=== PATIENT | male | born 1940 | race Caucasian/White ===

== ENCOUNTER 2018-12-07 16:55 | Emergency (ER) | payer MEDICARE ==
[~2018-12-07] VITALS: Ht 182.9 cm; Wt 90.7 kg
[~2018-12-07 16:55] MED LIST: ASPI81EC PO; CHLO4 PO; ROSU10TA PO; [UNRECOGNIZED DRUG - OTHER]
[2018-12-07] MEDS ORDERED: PROAIR RESPICL90 MCG PO (17:19)
[2018-12-07] MEDS ORDERED: Aspirin EC81 MG PO (17:20)
[2018-12-07] MEDS ORDERED: CHOL10002 PO (17:20)
[2018-12-07] MEDS ORDERED: Tamiflu75 MG PO (18:35)
== END 2018-12-07 18:52 | disposition home or self-care (01) ==
LOC: ER 16:55
DX: J10.1 Influenza due to other identified influenza virus with other respiratory manifestations (principal); I21.4 Non-ST elevation (NSTEMI) myocardial infarction; Z79.899 Other long term (current) drug therapy; E78.5 Hyperlipidemia, unspecified; Z85.46 Personal history of malignant neoplasm of prostate; F17.210 Nicotine dependence, cigarettes, uncomplicated
CPT/HCPCS: 99284

== ENCOUNTER 2019-07-08 07:57 | Day surgery (SDC) | payer OTHER, MEDICARE ==
[~2019-07-08] VITALS: Ht 182.9 cm; Wt 89.0 kg
[~2019-07-08 07:57] MED LIST changes: +Aspirin EC81 MG PO; +CHOL10002 PO; +Calcium Carbon500 MG PO; +Crestor40 MG PO; +MELA3 PO; +Naproxen250 MG PO; +PROAIR RESPICL90 MCG PO; +Tamiflu75 MG PO; +VOLTAREN100 GM TOP; +Zoladex3.6 MG SC
--- NOTE | 2019-07-08 14:12 | NUR ---
DISCHARGE PT REMIANED A&OX3 AND DENIED ANY PAIN AT THIS TIME. R RADIAL SITE-TR BAND REMOVED WITH CLOTH DOT AND WHITE BOARD IN [id number] HEMATOMA NOTED. PT ABULATED TO RESTROOM WITH SBA AND WAS ABLE TO DRESS SELF WITH LITTLE ASSITANCE. IV DC'D WITH TIP IN TACT. DISCHARGE PAPERWORK GONE OVER WITH PT. PT VERBALLY STATED THE UNDERSTANDING OF THE DISCHARGE EDUCATION AND DENIED ANY QUESTIONS AT THIS TIME. PT REFUSED WHEEL CHAIR AND WALK OUT.
--- NOTE | 2019-07-08 14:53 | NUR ---
NEW MEDICATION NEW PRESCRIPTION AND PROCEDURE REPORT FAXED TO [facility] TO BE FILL[facility].
== END 2019-07-08 14:30 | disposition home or self-care (01) ==
LOC: MHTC 07:57
DX: I70.203 Unspecified atherosclerosis of native arteries of extremities, bilateral legs (principal); I70.0 Atherosclerosis of aorta; I70.8 Atherosclerosis of other arteries; I10 Essential (primary) hypertension; E78.5 Hyperlipidemia, unspecified; J44.9 Chronic obstructive pulmonary disease, unspecified; M19.90 Unspecified osteoarthritis, unspecified site; F17.210 Nicotine dependence, cigarettes, uncomplicated; Z79.82 Long term (current) use of aspirin; Z79.899 Other long term (current) drug therapy; Z85.46 Personal history of malignant neoplasm of prostate
CPT/HCPCS: 36245; 75630; 75774; 76937; 99152; 99153; C1769; C1887; C1894; J1644; J2250; J3010; J7030; Q9967

== ENCOUNTER 2019-08-01 09:20 | Day surgery (SDC) | payer OTHER, MEDICARE ==
[~2019-08-01] VITALS: Ht 182.9 cm; Wt 90.1 kg
[~2019-08-01 09:20] MED LIST changes: +CLOP75 PO
--- NOTE | 2019-08-01 15:56 | NUR ---
PT REFUSING TO FOLLOW REQUESTS ABOUT LAYING ON HIS BACK UNTIL THE SHEATH IS PULLED FROM HIS ACCESS SITE. PT EDUCATED ON THE COMPLICATIONS OF BLEEDING FROM SITE IF HE BENDS HIS LEG OR LAYS ON THE SIDE IN WHICH THE SHEATH IS STILL IN. PT STATES HIS UNDERSTANDING AND STATES "I DONT CARE, I NEED OFF MY BACK". WILL CONTINUE TO MONITOR SITE FOR BLEEDING.
--- NOTE | 2019-08-01 16:52 | NUR ---
PT REMAINS INSISTING NOT TO FOLLOW REQUESTS OF HIM LAYING ON HIS BACK UNTIL THE SHEATH IS REMOVED FROM HIS ARTERY. PT STATES "I DANIEL REESE LAY LIKE THIS". WILL CONTINUE TO MONITOR SITE AND VITAL SIGNS.
--- NOTE | 2019-08-01 17:10 | NUR ---
IN TO [facility]. REINFORCED PT OF THE IMPORTANCE OF HIM LAYING ON HIS BACK AND NOT HIS SIDE DUE TO THE SHEATH STILL BEING IN PLACE AND IF HE LAYS ON HIS SIDE HE PUTS HIMSELF AT RISK FOR BLEEDING TO . PT STATES HIS UNDERSTANDING. RECEIVED VERBAL ORDER FOR PERCOCET 5/325MG PO FOR PAIN PRN Q4H. SITE VIEWED. NO BLEEDING OR HEMATOMA NOTED. PT DENIES BACK PAIN. ORDER FAXED TO PHARMACY.
--- NOTE | 2019-08-01 17:22 | NUR ---
PT MEDICATED PERCOCET PO FOR 7/10 LEFT HIP/LEG PAIN. ACT CHECKED 153, LEFT ANTEGRADE 6 FR SHEATH PULL STARTED. PT C/O INCREASED PAIN, MEDICATED WITH FENTANLYL 50 MCG IVP DURING SHEATH PULL. PT APPEARS TO BE MORE COMFORTABLE AT THIS TIME. MANUAL PRESSURE HOLD GOING AT THIS TIME BY DEDE GOODSON RN. WILL CONTINUE TO MONITOR.
--- NOTE | 2019-08-01 18:17 | NUR ---
PATIENT ARRIVED ICU 11 AT APPROX 1805 AFTER REPORT FROM DEANGELO BARRERA FROM [facility]. LEFT GROIN SITE STABLE WITH LINDA DRESSING IN PLACE. RIGHT RADIAL SITE WITH ARM BAND ON. LEFT PEDAL PULSE BY DOPPLER. FOOT IS WARM.
--- NOTE | 2019-08-01 19:20 | NUR ---
GROIN SITE CONTINUES STABLE. REPORT TO DEANGELO LUKE
--- NOTE | 2019-08-01 21:44 | NUR ---
ASSUMED CARE AT 2114 - NOC SHIFT PATIENT LAYING SUPINE IN BED, LEFT GROIN SITE ASSESSED WITH NO BLEEDING OR HEMATOMA NOTED. PATIENT ALSO HAS RIGHT RADIAL SITE THAT HAS A DRESSING OVER IT WITH ARM BOARD IN PLACE. PATIENT EDUCATED REGARDING USING RIGHT ARM AND ALSO EDUCATED ON REMAINING FLAT IN BED DUE TO LEFT GROIN SITE. PATIENT CONTINUE TO MOVE IN BED AND USING AGRESSIVE TONES WITH CURSE WORDS REGARDING LAYING IN BED FLAT - STATING 'I CANNOT USE THE FUCKING BED SMALLWOOD' - CONTINUED TO EDUCATE PATIENT REGARDING GROIN AND RADIAL SITES. PATIENT REMAINS IN NSR IN THE 60'S. ON ROOM AIR. REPORTS PAIN RELIEVED IN LEFT GROIN WITH MEDICATIONS PER EMAR. WOUND NOTED TO LEFT BACK OF CALF - TREATMENT PER WOUND CENTER (FROM CAT BITE). CALL LIGHT W/I REACH. WILL CONTINUE TO MONITOR.
--- NOTE | 2019-08-02 04:47 | NUR ---
PCU NOC SHIFT SUMMARY (ICU 2) PATIENT REMAINED ALERT AND ORIENTED X4 T/O SHIFT - PATIENT EASILY AGITATED AT BASELINE THROUGHOUT THIS STAY. PATIENT IS ANXIOUS TO GO HOME AND GO OUTSIDE TO SMOKE. NICOTINE PATCH ON RIGHT SHOULDER NOTED. PATIENT HAS ANGIO GRAM 08/01 WITH PCI OF RIGHT RADIAL AND LEFT GROIN AREA - BOTH SIDES ARE FREE OF ANY BLEEDING OR HEMATOMA. PATIENT DENIES ANY CHEST PAIN T/O SHIFT BUT DOES REPORT ONGOING LEFT LEG AND HIP PAIN. PATIENT REMAINS ON ROOM AIR AND SINUS TO SINUS CAROL WITH NO CARDIAC EVENTS NOTED T/O SHIFT. PCI SITES REMAIN STABLE T/O SHIFT. WILL CONTINUE TO MONITOR AND GIVE REPORT TO DAYSHIFT RN.
--- NOTE | 2019-08-02 07:10 | NUR ---
START OF SHIFT NOTE: RECEIVED REPORT FROM DEANGELO GRAHAM, ASSUMED CARE, PATIENT IS SLEEPING BUT EASILY AROUSEABLE, A+Ox4, RA, SR/SB, HR 50-70'S, SBP'S 110'S, PATIENT'S RIGHT RADIAL ACCESS SITE C/D/I, NO BLEEDING/TENDERNESS/HEMATOMA NOTED, ALSO LEFT GROIN SITE HAS NEPTUN OVER ACCESS SITE, SMALL AMOUNT OF OLD DRAINAGE NOTED, NO TENDERNESS, HEMATOMA, BLEEDING, PATIENT GETS UP TO ROOM TOILET WITH ONE ASSIST, PATIENT INCONTINENT OF URINE AT TIMES WEARS PULL UPS, EASILY AGITATED, BUT COOPERATIVE, PATIENT HAS WOUND ON LEFT CALF FROM A CAT BITE AND IS TREATED AT THE WOUND CLINIC, POSSIBLY HOME TODAY, DR. WHITAKER WILL BE HERE THIS AM TO SEE PATIENT BEFORE DISCHARGE, CALL LIGHT IN REACH, WILL CONTINUE TO MONITOR.
--- NOTE | 2019-08-02 08:45 | NUR ---
DR. WHITAKER IN TO SEE PATIENT, DISCHARGED HOME, DISCHARGE PAPERWORK WRITTEN AND VERBAL GIVEN AND EXPLAINED, PATIENT VERBALIZED UNDERSTANDING AND SIGNED DISCHARGE PAPERWORK, AWAITING ARRIVAL OF FRIEND TO GIVE PATIENT A RIDE HOME.
[2019-08-02] MEDS ORDERED: ALBU90OI INH (09:01)
--- NOTE | 2019-08-02 09:39 | NUR ---
PATIENT'S FRIEND HERE TO PROVIDE RIDE HOME, LEFT HOSPITAL VIA WHEELCHAIR.
== END 2019-08-02 09:40 | disposition home or self-care (01) ==
LOC: MHTC 09:20 → ICUW 18:19 → ICUE 20:28 → ICUW 20:28 → ICUE 20:28 → MHTC 08-02 09:40
PROC: 047L3ZZ Dilation of Left Femoral Artery, Percutaneous Approach (ICD-10-PCS; principal; 2019-08-01)
PROC: B41GYZZ Fluoroscopy of Left Lower Extremity Arteries using Other Contrast (ICD-10-PCS; 2019-08-01)
DX: I70.212 Atherosclerosis of native arteries of extremities with intermittent claudication, left leg (principal); I77.1 Stricture of artery; I74.5 Embolism and thrombosis of iliac artery; I73.9 Peripheral vascular disease, unspecified; I10 Essential (primary) hypertension; J44.9 Chronic obstructive pulmonary disease, unspecified; F17.210 Nicotine dependence, cigarettes, uncomplicated; Z79.01 Long term (current) use of anticoagulants; Z79.82 Long term (current) use of aspirin
CPT/HCPCS: 36245; 37224; 37252; 75710; 76937; 85347; 99152; 99153; C1725; C1753; C1769; C1887; C1894; C2623; J1644; J2250; J3010; J7030; J7040; Q9967

== ENCOUNTER 2021-01-08 10:30 | Day surgery (SDC) | payer OTHER, MEDICARE ==
[~2021-01-08] VITALS: Ht 185.4 cm; Wt 91.0 kg
[~2021-01-08 10:30] MED LIST changes: +ALBU90OI INH; +NAPR500EC PO
[2021-01-08] MEDS ORDERED: ALLERCLEAR10 MG PO (10:59)
--- NOTE | 2021-01-08 16:48 | NUR ---
PT REMAINS A&OX3 AND DENIED ANY PAIN DURING RECOVERY. R GROIN AND L PEDAL SITE REMAIN CDI-NO HEMATOMA NOTED. SBAR GIVEN TO LOC Lutz RN.
--- NOTE | 2021-01-08 17:28 | NUR ---
PATIENT DISCHARGED VIA WHEELCHAIR WITH DEDE BRIGHT AND KEYLA BRIGHT. LEFT FOOT DRESSED BY DEDE BRIGHT. DISCAHRGE INSTRUCTIONS GIVEN TO PATIENT. TRANSPORTED HOME IN CAR BY A FRIEND.
== END 2021-01-08 23:21 | disposition home or self-care (01) ==
LOC: MHTC 10:30
DX: I70.213 Atherosclerosis of native arteries of extremities with intermittent claudication, bilateral legs (principal); Z72.0 Tobacco use; I10 Essential (primary) hypertension; E78.5 Hyperlipidemia, unspecified; J44.9 Chronic obstructive pulmonary disease, unspecified; Z20.822 Contact with and (suspected) exposure to COVID-19
CPT/HCPCS: 36140; 37221; 75716; 75774; 76937; 85347; 99152; 99153; C1725; C1760; C1769; C1874; C1876; C1887; C1894; J0360; J1644; J2060; J2250; J3010; J7030; J7050; Q9967

== ENCOUNTER 2021-01-17 22:59 | Observation (INO) | payer OTHER, MEDICARE ==
[~2021-01-17] VITALS: Ht 185.4 cm; Wt 89.2 kg
[~2021-01-17 22:59] MED LIST changes: +ALLERCLEAR10 MG PO
[2021-01-17 23:29] LABS: BASOPHILS ABSOLUTE AUTO 0.05 K/mm3 (0.00-0.23); BASOPHILS PERCENT AUTO 1 % (0-2); EOSINOPHILS ABSOLUTE AUTO 0.25 K/mm3 (0.00-0.68); EOSINOPHILS PERCENT AUTO 3 % (0-6); Hematocrit 41.9 % (37.0-53.0); Hemoglobin 13.6 g/dL (13.5-17.5); IMMATURE GRAN ABSOLUTE AUTO 0.02 K/mm3 (0.00-0.10); IMMATURE GRAN PERCENT AUTO 0 % (0-1); LYMPHOCYTES ABSOLUTE AUTO 1.86 K/mm3 (0.84-5.20); LYMPHOCYTES PERCENT AUTO 23 % (21-46); MONOCYTES ABSOLUTE AUTO 0.69 K/mm3 (0.16-1.47); MONOCYTES PERCENT AUTO 9 % (4-13); Mean Corpuscular HGB 28.2 pg (26.0-34.0); Mean Corpuscular HGB Conc 32.5 g/dL (31.5-36.5); Mean Corpuscular Volume 87 fL (80-100); Mean Platelet Volume 9.4 fL (9.1-12.4); NEUTROPHILS PERCENT AUTO 65 % (41-73); Platelet Count 329 K/mm3 (150-400); RDW Coefficient Variation 13.1 % (11.7-14.2); RDW Standard Deviation 41.4 fL (35.1-46.3); Red Blood Cell Count 4.82 M/mm3 (4.30-5.90); White Blood Cell Count 8.07 K/mm3 (4.00-11.30)
[2021-01-17 23:46] LABS: Alanine Aminotransfer (ALT/SGP 25 U/L (12-78); Albumin, Blood 3.4 g/dL (3.4-5.0); Albumin/Globulin Ratio 0.8 (0.8-1.8); Alk Phos 77 U/L (50-136); Anion Gap 6 mmol/L (6-16); Aspartate Aminotrans (AST/SGOT 12 U/L (12-37); Bilirubin, Total 0.3 mg/dL (0.1-1.0); Blood Urea Nitrogen 13 mg/dL (8-24); Bun/Creatinine Ratio 14.8 (12.0-20.0); CO2, Blood 25 mmol/L (21-32); Calcium, Blood 8.9 mg/dL (8.5-10.1); Chloride, Blood 109 mmol/L (98-108); Creatinine, Blood 0.88 mg/dL (0.60-1.20); Glomerular Filtration Rate >60 (60-); Glucose, Blood 75 mg/dL (70-99); Potassium, Blood 3.9 mmol/L (3.5-5.5); Sodium, Blood 140 mmol/L (136-145); Total Protein, Blood 7.4 g/dL (6.4-8.2); Troponin I <0.015 ng/mL (0.000-0.040)
--- NOTE | 2021-01-18 02:52 | NUR ---
ADMIT NOTE HANDOFF RECIEVED FROM DARRION RN, PT TRANSFERED TO FLOOR VIA GURNEY. PERSONAL POSESSIONS W PT. PT ORIENTED TO UNIT. CALL LIGHT WITHIN REACH.
--- NOTE | 2021-01-18 04:31 | NUR ---
VISUAL EDUCATOR SUMMARY. PT ADMITTED FROM ED FOR CHEST PAIN. FULL CODE. PLAN IS FOR CARDIOLOGY CONSULT TODAY. CONSULT CALLED TO ANSWERING SERVICE. PT HAD RECENT STENT AND ANGIOPLASTY. TROP NEGATIVE, WE ARE TRENDING TROPONIN LABS. TELEMETRY: SINUS RHYTHM 79 BPM. NO COMPLAINTS OF CP ON THE FLOOR. PT STATES HIS NEIGHBOR HAS BEEN ACTING HIS CAREGIVER BUT "SHE IS NOT VERY GOOD AT IT". PT LIVES ALONE IN A TRAILER. NO OTHER CONCERNS THIS SHIFT. WILL CONTINUE TO MONITOR.
--- NOTE | 2021-01-18 05:06 | NUR ---
CTA/PHYSICAL LABORATORY ASSISTANT I HAVE ASSESSED THIS PT. I HAVE READ THE PHYSICAL LABORATORY ASSISTANT NOTES AND I AGREE. SHIFT SUMMARY IN STUDENT NURSING NOTES.
--- NOTE | 2021-01-18 12:18 | NUR ---
Echocardiogram completed.
--- NOTE | 2021-01-18 12:44 | NUR ---
pt arrived to pcu 2 via bed from heart connell, no stents placed, right radial site is clear, no signs of bleeding. pt awake, v.s. stable. will monitor, site and v.s. oriented to room layout and call system, call light in reach.
--- NOTE | 2021-01-18 18:03 | NUR ---
pt tr band off, will place bandage after fully removed, pt will be going home tonight, call light in reach.
[2021-01-18] MEDS ORDERED: ATOR80 PO (18:54)
[2021-01-18] MEDS ORDERED: Nicoderm Cq1 EAC1 TOP (18:54)
[2021-01-18] MEDS ORDERED: Isosorbide Mono30 MG PO (18:54)
[2021-01-18] MEDS ORDERED: NITR.4SL SL (18:55)
--- NOTE | 2021-01-18 19:15 | NUR ---
pt has been discharged to home, iv removed intact, he was educated in discharge instructions, new meds called in to [facility], left via wheelchair with nurse in attendence with all his belongings.
--- NOTE | 2021-01-18 19:25 | NUR ---
PT EDUCATION AND DISCHARGE PACKET REVIEWED WITH THIS RN, INCLUDING TR BAND AFTER CARE INSTRUCTIONS, MEDICATION LIST, DISCHARGE INSTRUCTIONS AND EDUCATION. PT VERBALIZES UNDERSTANDING AND HAS NO QUESTIONS OR CONCERNS AT THIS TIME. ALL BELONGINGS SENT WITH PT. PRESCRIPTIONS SENT TO [facility], PT VERBALIZES UNDERSTANDING TO PICK THEM UP AND TAKE ALL HIS MEDICATIONS INSTRUCTED. NO FUTHER DISCHARGE NEEDS NOTED AT THIS TIME.
== END 2021-01-18 19:30 | disposition home or self-care (01) ==
LOC: ER 22:59 → MEDS 23:00 → PCU 01-18 11:40
PROVIDERS: Emergency Medicine; ADMIT Family Medicine
DX: I25.110 Atherosclerotic heart disease of native coronary artery with unstable angina pectoris (principal); J44.9 Chronic obstructive pulmonary disease, unspecified; I73.9 Peripheral vascular disease, unspecified; F17.210 Nicotine dependence, cigarettes, uncomplicated; K21.9 Gastro-esophageal reflux disease without esophagitis; E78.00 Pure hypercholesterolemia, unspecified; I11.0 Hypertensive heart disease with heart failure; I50.9 Heart failure, unspecified; Z95.820 Peripheral vascular angioplasty status with implants and grafts; Z79.82 Long term (current) use of aspirin; Z79.02 Long term (current) use of antithrombotics/antiplatelets; Z85.46 Personal history of malignant neoplasm of prostate; Z96.651 Presence of right artificial knee joint; Z98.1 Arthrodesis status; Z82.49 Family history of ischemic heart disease and other diseases of the circulatory system
CPT/HCPCS: 36415; 71046; 76937; 80053; 83690; 84484; 85025; 93005; 93010; 93306; 93458; 96372; 99152; 99153; 99285-25; A9270; C1769; C1894; G0378; J1650; J2250; J3010; J7030; Q9967

== ENCOUNTER 2021-03-07 12:25 | Emergency (ER) | payer OTHER, MEDICARE ==
[~2021-03-07] VITALS: Ht 185.4 cm; Wt 90.7 kg
[~2021-03-07 12:25] MED LIST changes: +ATOR80 PO; +Isosorbide Mono30 MG PO; +NITR.4SL SL; +Nicoderm Cq1 EAC1 TOP
[2021-03-07 13:12] LABS: BASOPHILS ABSOLUTE AUTO 0.03 K/mm3 (0.00-0.23); BASOPHILS PERCENT AUTO 0 % (0-2); EOSINOPHILS PERCENT AUTO 4 % (0-6); Hematocrit 34.4 % (37.0-53.0); Hemoglobin 11.1 g/dL (13.5-17.5); IMMATURE GRAN ABSOLUTE AUTO 0.02 K/mm3 (0.00-0.10); IMMATURE GRAN PERCENT AUTO 0 % (0-1); LYMPHOCYTES ABSOLUTE AUTO 1.45 K/mm3 (0.84-5.20); LYMPHOCYTES PERCENT AUTO 19 % (21-46); MONOCYTES ABSOLUTE AUTO 0.63 K/mm3 (0.16-1.47); MONOCYTES PERCENT AUTO 8 % (4-13); Mean Corpuscular HGB 28.2 pg (26.0-34.0); Mean Corpuscular HGB Conc 32.3 g/dL (31.5-36.5); Mean Corpuscular Volume 88 fL (80-100); NEUTROPHILS ABSOLUTE AUTO 5.26 K/mm3 (1.96-9.15); NEUTROPHILS PERCENT AUTO 68 % (41-73); Platelet Count 189 K/mm3 (150-400); RDW Coefficient Variation 13.9 % (11.7-14.2); RDW Standard Deviation 44.9 fL (35.1-46.3); Red Blood Cell Count 3.93 M/mm3 (4.30-5.90); White Blood Cell Count 7.69 K/mm3 (4.00-11.30)
[2021-03-07 13:26] LABS: Alanine Aminotransfer (ALT/SGP 17 U/L (12-78); Albumin, Blood 2.8 g/dL (3.4-5.0); Albumin/Globulin Ratio 0.9 (0.8-1.8); Alk Phos 64 U/L (50-136); Anion Gap 2 mmol/L (6-16); Aspartate Aminotrans (AST/SGOT 17 U/L (12-37); Bilirubin, Total 0.5 mg/dL (0.1-1.0); Blood Urea Nitrogen 12 mg/dL (8-24); Bun/Creatinine Ratio 12.3 (12.0-20.0); CO2, Blood 23 mmol/L (21-32); Calcium, Blood 8.2 mg/dL (8.5-10.1); Chloride, Blood 116 mmol/L (98-108); Creatinine, Blood 0.97 mg/dL (0.60-1.20); Glomerular Filtration Rate >60 (60-); Glucose, Blood 96 mg/dL (70-99); Potassium, Blood 3.6 mmol/L (3.5-5.5); Sodium, Blood 141 mmol/L (136-145); Total Protein, Blood 5.8 g/dL (6.4-8.2); Troponin I 0.307 ng/mL (0.000-0.040)
== END 2021-03-07 16:57 | disposition home or self-care (01) ==
LOC: ER 12:25
PROVIDERS: Emergency Medicine
DX: I48.0 Paroxysmal atrial fibrillation (principal); E78.5 Hyperlipidemia, unspecified; J44.9 Chronic obstructive pulmonary disease, unspecified; Z79.82 Long term (current) use of aspirin; Z79.02 Long term (current) use of antithrombotics/antiplatelets; Z79.899 Other long term (current) drug therapy; Z98.890 Other specified postprocedural states
CPT/HCPCS: 71045; 80053; 83690; 83880; 84484; 85025; 93005; 93010; 99285-25

== ENCOUNTER 2021-04-29 10:14 | Day surgery (SDC) | payer OTHER ==
[~2021-04-29] VITALS: Ht 185.4 cm; Wt 88.4 kg
--- NOTE | 2021-04-29 10:30 | NUR ---
WHEELED TO RECOVERY ROOM FOR PROCEDURE. SEE ADMISSION HISTORY.
[2021-04-29] MEDS ORDERED: Crestor40 MG (10:37)
--- NOTE | 2021-04-29 16:33 | NUR ---
patient resting in bed, awakens easily and responds appropriatly. right groin site soft and nontender. dressing D7I. no hematoma.
--- NOTE | 2021-04-29 17:15 | NUR ---
patient up in bed. right groin site soft and nontender. dressing unchanged.
--- NOTE | 2021-04-29 17:40 | NUR ---
patient up at side of bed dressing. right groin site stable. denies discomfort.
--- NOTE | 2021-04-29 18:10 | NUR ---
PATIENT VERBALIZED UNDERSTANDING OF DISCHARGE INSTRUCTIONS AND PRECAUTIONS. RIGHT GROIN SITE SOFT AND NONTENDER. DRESSING D&I. NO HEMATOMA. NO FURTHER QUESTIONS. PATIENT TAKEN TO WAITING CAR VIA WHEEL CHAIR. FRIEND DRIVING.
== END 2021-04-29 17:45 | disposition home or self-care (01) ==
LOC: MHTC 10:14
DX: I70.213 Atherosclerosis of native arteries of extremities with intermittent claudication, bilateral legs (principal); J44.9 Chronic obstructive pulmonary disease, unspecified; E78.5 Hyperlipidemia, unspecified; I10 Essential (primary) hypertension; F17.210 Nicotine dependence, cigarettes, uncomplicated; M17.11 Unilateral primary osteoarthritis, right knee; Z85.46 Personal history of malignant neoplasm of prostate; Z95.820 Peripheral vascular angioplasty status with implants and grafts; Z79.82 Long term (current) use of aspirin; Z79.02 Long term (current) use of antithrombotics/antiplatelets
CPT/HCPCS: 36246; 75716; 75774; 76937; 99152; 99153; C1760; C1769; C1887; C1894; J2060; J2250; J3010; J7030; Q9967

== ENCOUNTER 2021-06-01 01:11 | Emergency (ER) | payer OTHER ==
[~2021-06-01] VITALS: Ht 185.4 cm; Wt 90.7 kg
[~2021-06-01 01:11] MED LIST changes: +Crestor40 MG
[2021-06-01] MEDS ORDERED: METOPROLOL TART25 MG PO (01:59)
== END 2021-06-01 03:52 | disposition home or self-care (01) ==
LOC: ER 01:11
DX: R10.32 Left lower quadrant pain (principal); E78.5 Hyperlipidemia, unspecified; J44.9 Chronic obstructive pulmonary disease, unspecified; F17.210 Nicotine dependence, cigarettes, uncomplicated; Z79.899 Other long term (current) drug therapy; Z79.82 Long term (current) use of aspirin; Z79.02 Long term (current) use of antithrombotics/antiplatelets
CPT/HCPCS: 72170; 99283-25

== ENCOUNTER 2021-08-05 06:20 | Day surgery (SDC) | payer OTHER ==
[~2021-08-05] VITALS: Ht 185.4 cm; Wt 89.0 kg
[~2021-08-05 06:20] MED LIST changes: +METOPROLOL TART25 MG PO
[2021-08-05] MEDS ORDERED: XARELTO2.5 MG PO (12:22)
--- NOTE | 2021-08-05 14:34 | NUR ---
ALL DISCHARGE INSTRUCTIONS GIVEN TO PATIENT, VERBALIZES UNDERSTANDING. R GROIN SITE STABLE. SALINE LOCK REMOVED WITH CATHETER INTACT. L PT SITE STABLE WELL. PT DRESSED WITH MINIMAL ASSISTANCE. BOTH SITES REMAIN STABLE. RIDE CALLED.
--- NOTE | 2021-08-05 15:00 | NUR ---
PT TO PRIVATE VEHICLE PER W/C WITH ONE STAFF.
== END 2021-08-05 15:00 | disposition home or self-care (01) ==
LOC: MHTC 06:20
DX: I70.223 Atherosclerosis of native arteries of extremities with rest pain, bilateral legs (principal); J44.9 Chronic obstructive pulmonary disease, unspecified; I10 Essential (primary) hypertension; F17.210 Nicotine dependence, cigarettes, uncomplicated; E78.5 Hyperlipidemia, unspecified; Z79.82 Long term (current) use of aspirin; Z79.02 Long term (current) use of antithrombotics/antiplatelets
CPT/HCPCS: 76937; 85347; A9270; C1714; C1725; C1760; C1769; C1874; C1887; C1894; C2623; J1644; J2370; J2405; J2704; J3010; J7030; J7050; Q9967

== ENCOUNTER 2021-08-08 16:53 | Emergency (ER) | payer OTHER ==
[~2021-08-08] VITALS: Ht 185.4 cm; Wt 90.7 kg
[~2021-08-08 16:53] MED LIST changes: +XARELTO2.5 MG PO
[2021-08-08 17:42] LABS: BASOPHILS ABSOLUTE AUTO 0.03 K/mm3 (0.00-0.23); BASOPHILS PERCENT AUTO 0 % (0-2); EOSINOPHILS ABSOLUTE AUTO 0.31 K/mm3 (0.00-0.68); EOSINOPHILS PERCENT AUTO 4 % (0-6); Hematocrit 39.2 % (37.0-53.0); Hemoglobin 12.4 g/dL (13.5-17.5); IMMATURE GRAN ABSOLUTE AUTO 0.02 K/mm3 (0.00-0.10); IMMATURE GRAN PERCENT AUTO 0 % (0-1); LYMPHOCYTES ABSOLUTE AUTO 1.37 K/mm3 (0.84-5.20); LYMPHOCYTES PERCENT AUTO 16 % (21-46); MONOCYTES ABSOLUTE AUTO 0.93 K/mm3 (0.16-1.47); MONOCYTES PERCENT AUTO 11 % (4-13); Mean Corpuscular HGB 27.6 pg (26.0-34.0); Mean Corpuscular HGB Conc 31.6 g/dL (31.5-36.5); Mean Corpuscular Volume 87 fL (80-100); Mean Platelet Volume 9.8 fL (9.1-12.4); NEUTROPHILS ABSOLUTE AUTO 5.99 K/mm3 (1.96-9.15); NEUTROPHILS PERCENT AUTO 69 % (41-73); Platelet Count 220 K/mm3 (150-400); RDW Standard Deviation 44.6 fL (35.1-46.3); White Blood Cell Count 8.65 K/mm3 (4.00-11.30)
[2021-08-08 18:02] LABS: Alanine Aminotransfer (ALT/SGP 36 U/L (12-78); Albumin/Globulin Ratio 0.8 (0.8-1.8); Alk Phos 91 U/L (50-136); Anion Gap 3 mmol/L (6-16); Aspartate Aminotrans (AST/SGOT 46 U/L (12-37); Bilirubin, Total 0.6 mg/dL (0.1-1.0); Blood Urea Nitrogen 14 mg/dL (8-24); Bun/Creatinine Ratio 14.8 (12.0-20.0); CO2, Blood 28 mmol/L (21-32); CPK Creatine Kinase 353 U/L (39-308); Calcium, Blood 8.7 mg/dL (8.5-10.1); Chloride, Blood 108 mmol/L (98-108); Creatinine, Blood 0.95 mg/dL (0.60-1.20); Glomerular Filtration Rate >60 (60-); Glucose, Blood 76 mg/dL (70-99); Magnesium, Blood 2.2 mg/dL (1.6-2.4); Potassium, Blood 3.9 mmol/L (3.5-5.5); Sodium, Blood 139 mmol/L (136-145)
[2021-08-08 18:05] LABS: Creatine Kinase MB <1.0 ng/mL (0.0-3.6); Creatine Kinase MB Index Unable to Calculate (0.0-4.0)
== END 2021-08-08 20:35 | disposition home or self-care (01) ==
LOC: ER 16:53
PROVIDERS: Student in an Organized Health Care Education/Training Program
DX: G89.18 Other acute postprocedural pain (principal); M79.662 Pain in left lower leg; R60.0 Localized edema; E78.5 Hyperlipidemia, unspecified; J44.9 Chronic obstructive pulmonary disease, unspecified; J45.909 Unspecified asthma, uncomplicated; K21.9 Gastro-esophageal reflux disease without esophagitis; I73.9 Peripheral vascular disease, unspecified; I25.2 Old myocardial infarction; F17.210 Nicotine dependence, cigarettes, uncomplicated; Z95.5 Presence of coronary angioplasty implant and graft; Z79.82 Long term (current) use of aspirin; Z79.899 Other long term (current) drug therapy
CPT/HCPCS: 36415; 80053; 82550; 82553; 83605; 83735; 85025; 96374; 99283-25; A9270; J1170

== ENCOUNTER 2021-10-07 18:16 | Emergency (ER) | payer OTHER ==
[~2021-10-07] VITALS: Ht 185.4 cm; Wt 90.7 kg
[2021-10-07 19:42] LABS: BASOPHILS ABSOLUTE AUTO 0.02 K/mm3 (0.00-0.23); BASOPHILS PERCENT AUTO 0 % (0-2); EOSINOPHILS ABSOLUTE AUTO 0.01 K/mm3 (0.00-0.68); EOSINOPHILS PERCENT AUTO 0 % (0-6); Hematocrit 38.6 % (37.0-53.0); Hemoglobin 12.6 g/dL (13.5-17.5); IMMATURE GRAN ABSOLUTE AUTO 0.01 K/mm3 (0.00-0.10); IMMATURE GRAN PERCENT AUTO 0 % (0-1); LYMPHOCYTES ABSOLUTE AUTO 0.65 K/mm3 (0.84-5.20); LYMPHOCYTES PERCENT AUTO 12 % (21-46); MONOCYTES PERCENT AUTO 13 % (4-13); Mean Corpuscular HGB 28.2 pg (26.0-34.0); Mean Corpuscular HGB Conc 32.6 g/dL (31.5-36.5); Mean Corpuscular Volume 86 fL (80-100); Mean Platelet Volume 10.1 fL (9.1-12.4); NEUTROPHILS ABSOLUTE AUTO 4.19 K/mm3 (1.96-9.15); NEUTROPHILS PERCENT AUTO 75 % (41-73); Platelet Count 157 K/mm3 (150-400); RDW Coefficient Variation 14.7 % (11.7-14.2); RDW Standard Deviation 47.7 fL (35.1-46.3); Red Blood Cell Count 4.47 M/mm3 (4.30-5.90); White Blood Cell Count 5.58 K/mm3 (4.00-11.30)
[2021-10-07 20:04] LABS: Anion Gap 5 mmol/L (6-16); Blood Urea Nitrogen 14 mg/dL (8-24); CO2, Blood 25 mmol/L (21-32); Calcium, Blood 8.3 mg/dL (8.5-10.1); Chloride, Blood 108 mmol/L (98-108); Glomerular Filtration Rate >60 (60-); Glucose, Blood 102 mg/dL (70-99); Sodium, Blood 138 mmol/L (136-145)
[2021-10-07] MEDS ORDERED: HYDR1TAB94 PO (21:06)
== END 2021-10-07 21:51 | disposition home or self-care (01) ==
LOC: ER 18:16
PROVIDERS: Emergency Medicine
DX: M25.551 Pain in right hip (principal); M25.552 Pain in left hip; J44.9 Chronic obstructive pulmonary disease, unspecified; E11.9 Type 2 diabetes mellitus without complications; F17.210 Nicotine dependence, cigarettes, uncomplicated; Z85.46 Personal history of malignant neoplasm of prostate; E78.5 Hyperlipidemia, unspecified; Z79.82 Long term (current) use of aspirin; Z79.899 Other long term (current) drug therapy
CPT/HCPCS: 36415; 72170; 80048; 85025; 85651; 86140; 99285-25; A9270

== ENCOUNTER 2021-10-12 19:18 | Emergency (ER) | payer OTHER ==
[~2021-10-12] VITALS: Ht 185.4 cm; Wt 90.7 kg
[~2021-10-12 19:18] MED LIST changes: +HYDR1TAB94 PO
== END 2021-10-13 00:55 | disposition home or self-care (01) ==
LOC: ER 19:18
DX: M79.652 Pain in left thigh (principal); M79.651 Pain in right thigh; G89.29 Other chronic pain; E78.5 Hyperlipidemia, unspecified; J44.9 Chronic obstructive pulmonary disease, unspecified; I10 Essential (primary) hypertension; K21.9 Gastro-esophageal reflux disease without esophagitis; I25.2 Old myocardial infarction; E11.51 Type 2 diabetes mellitus with diabetic peripheral angiopathy without gangrene; F17.210 Nicotine dependence, cigarettes, uncomplicated
CPT/HCPCS: 99283; A9270

== ENCOUNTER 2024-01-16 15:57 | Inpatient (IN) | payer OTHER ==
[~2024-01-16] VITALS: Ht 182.9 cm; Wt 89.7 kg
[~2024-01-16 15:57] MED LIST changes: +METO25 PO; +XARELTO PO
[2024-01-16 16:31] LABS: BASOPHILS ABSOLUTE AUTO 0.03 K/mm3 (0.00-0.23); BASOPHILS PERCENT AUTO 0 % (0-2); EOSINOPHILS ABSOLUTE AUTO 0.24 K/mm3 (0.00-0.68); EOSINOPHILS PERCENT AUTO 3 % (0-6); Hematocrit 40.6 % (37.0-53.0); Hemoglobin 13.5 g/dL (13.5-17.5); IMMATURE GRAN ABSOLUTE AUTO 0.03 K/mm3 (0.00-0.10); IMMATURE GRAN PERCENT AUTO 0 % (0-1); LYMPHOCYTES ABSOLUTE AUTO 1.21 K/mm3 (0.84-5.20); LYMPHOCYTES PERCENT AUTO 14 % (21-46); MONOCYTES ABSOLUTE AUTO 0.69 K/mm3 (0.16-1.47); MONOCYTES PERCENT AUTO 8 % (4-13); Mean Corpuscular HGB 29.7 pg (26.0-34.0); Mean Corpuscular HGB Conc 33.3 g/dL (31.5-36.5); Mean Corpuscular Volume 89 fL (80-100); Mean Platelet Volume 9.5 fL (9.1-12.4); NEUTROPHILS ABSOLUTE AUTO 6.74 K/mm3 (1.96-9.15); NEUTROPHILS PERCENT AUTO 76 % (41-73); Platelet Count 246 K/mm3 (150-400); RDW Coefficient Variation 13.7 % (11.7-14.2); Red Blood Cell Count 4.54 M/mm3 (4.30-5.90); White Blood Cell Count 8.94 K/mm3 (4.00-11.30)
[2024-01-16 16:39] LABS: Source, Urine Voided
[2024-01-16 16:48] LABS: Bilirubin, Urine Neg (Neg); Blood, Urine 1+ (Neg); Color, Urine Yellow (P-Yellow); Glucose Qualitative, Urine Neg (Neg); Ketones, Urine Neg (Neg); Leukocyte Esterase, Urine 1+ (Neg); Nitrite, Urine Neg (Neg); Protein, Urine Neg (Neg); Urobilinogen, Urine NORM (Normal)
[2024-01-16 16:52] LABS: Albumin, Blood 3.5 g/dL (3.4-5.0); Albumin/Globulin Ratio 0.9 (0.8-1.8); Bilirubin, Total 0.3 mg/dL (0.1-1.0); Bun/Creatinine Ratio 18.5 (12.0-20.0); Calcium, Blood 9.3 mg/dL (8.5-10.1); Creatinine, Blood 1.08 mg/dL (0.60-1.20); Globulin, Blood 3.9 g/dL (2.2-4.0); Potassium, Blood 4.2 mmol/L (3.5-5.5); Total Protein, Blood 7.4 g/dL (6.4-8.2)
[2024-01-16 16:58] LABS: Appearance, Urine Hazy (Clear)
[2024-01-16 16:59] LABS: Bacteria Mod /hpf; Red Blood Cells, Urine 0-2 /hpf (0-2); Squamous Epithelial Cells Rare /hpf (Few)
[2024-01-16] MEDS ORDERED: Ibuprofen 600 MG Tab PO ONE (17:45)
[2024-01-16] MEDS ORDERED: Cephalexin Monohydrate 500 MG Cap PO ONE (17:45)
[2024-01-17] MEDS ORDERED: HYDR1TAB94 PO (07:18)
[2024-01-17] MEDS ORDERED: HYDROcodone 5-APAP 325 TAB PO PRN (07:20)
[2024-01-17] MEDS ORDERED: Trimethoprim/Sulfamethoxazole DS Tab PO SCH (09:00)
[2024-01-17] MEDS ORDERED: Rosuvastatin Calcium 10 MG Tab PO SCH (09:00)
[2024-01-17] MEDS ORDERED: Cholecalciferol 1000 Unit Tablet (=25MCG) PO SCH (09:00)
[2024-01-17] MEDS ORDERED: Isosorbide Mononitrate 60 MG TABCR PO SCH (09:00)
[2024-01-17] MEDS ORDERED: Rivaroxaban 2.5 MG TABLET PO SCH (09:00)
[2024-01-17] MEDS ORDERED: Misc. Tablet PO SCH ×2 (09:00)
[2024-01-17] MEDS ORDERED: Clopidogrel Bisulfate 75 MG Tab PO SCH (09:00)
[2024-01-17] MEDS ORDERED: Cefdinir 300 MG Cap PO SCH (10:15)
[2024-01-17] MEDS ORDERED: PNEUMOC 20-VAL CONJ-DIP CRM/PF 0.5 ML SYRINGE IM ONE (12:30)
[2024-01-17] MEDS ORDERED: Acetaminophen 325 MG TABLET PO PRN (12:35)
[2024-01-17] MEDS ORDERED: NS 1,000 ML IV ONE (12:48)
[2024-01-17] MEDS ORDERED: NS 1,000 ML IV SCH (13:00)
[2024-01-17 15:39] VITALS: BP 118/65
[2024-01-17] MEDS ORDERED: ORGOVYX120 MG PO (15:44)
[2024-01-17] MEDS ORDERED: ERLEADA60 MG PO (15:45)
--- NOTE | 2024-01-17 17:09 | NUR ---
ADMISSION NOTE MR GARCES WAS ADMITTED TO NEDICAL UNIT FROM ER AT 1520HRS. TRANSFERED VIA SLIDE SHEET FROM THE STRETCHER, HE HAS NOT BEEN WITNESSED STANDING. ORIENTATED AND APPROPRIATE CONVERSATION. C/O GENERALISED WEAKNESS. RIGHT HIP PAIN TRAVELLING DOWN HIS RIGHT THIGH. R KNEE SWELLING. DECREASED MOBILITY AND MOVEMENT OF THE RIGHT LEG. LEFT FOOT COOLER THAN RIGHT FOOT. NO PALPABLE LEFT PEDAL PULSE WHICH MR GARCES SAID IS NORMAL FOR HIM. DOPPLAR US STUDY BEING DONE CURRENTLY. SKIN BREAKDOWN PHOTOGRAPHED WITH PT CONSENT, IN CHART. BUTTOCKS EXCORIATED AND RED - CLEANSED AND MEPILEX APPLIED. BRUISES AND SCRATCHES TO BOTH ARMS, SCRATCHES TO BOTH FEET. FEET RED AND CRACKED AND NAILS IN POOR CONDITION. MR GARCES IS A HEAVY SMOKER, 2PPD X 60YRS[address] BLANCO INFORMED THAT HE WOULD LIKE A NICOTENE PATCH. HE DENIED HAVING ANY IGNITION SOURCES OR TOBACCO WITH HIM. MR GARCES SAID THAT HE DRINKS 1.5 SHOTS OF WHISKY PER DAY, THAT HE HASN'T HAD ANY SINCE THURSDAY HE STARTED TAKING THE ANTIBIOTICS. HE CAME IN WITH A BOTTLE OF NORCO WHICH IS BEING STORED IN PHARMACY, RECEIPT IN HIS CHART. HE SAID A NEIGHBOR HELPS HIM SOMETIMES, BUT THAT HE DOESN'T HAVE FRIENDS OR FAMILY THAT HE CAN CALL ON FOR ASSISTANCE. PLAN FOR S.N.F.UPON DISCHARGE. BED LOW, CALL LIGHT IN REACH. BED ALARM ON.
[2024-01-17] MEDS ORDERED: Nicotine 14 MG PATCH TOP SCH (19:00)
[2024-01-17 19:30] VITALS: BP 127/58
[2024-01-17] MEDS ORDERED: CefTRIAXone Sodium 1,000 MG in NS 100 ML IV SCH (20:00)
[2024-01-17] MEDS ORDERED: Metoprolol Tartrate 25 MG Tab PO SCH (21:00)
[2024-01-17] MEDS ORDERED: Lactobacil 2-S.Thermo-Bifido 1 1 Cap PO SCH (21:00)
[2024-01-18 02:28] VITALS: BP 101/51
[2024-01-18 05:16] LABS: BASOPHILS ABSOLUTE AUTO 0.03 K/mm3 (0.00-0.23); BASOPHILS PERCENT AUTO 0 % (0-2); EOSINOPHILS ABSOLUTE AUTO 0.43 K/mm3 (0.00-0.68); EOSINOPHILS PERCENT AUTO 6 % (0-6); Hemoglobin 11.2 g/dL (13.5-17.5); IMMATURE GRAN ABSOLUTE AUTO 0.02 K/mm3 (0.00-0.10); IMMATURE GRAN PERCENT AUTO 0 % (0-1); LYMPHOCYTES PERCENT AUTO 20 % (21-46); MONOCYTES ABSOLUTE AUTO 0.71 K/mm3 (0.16-1.47); MONOCYTES PERCENT AUTO 10 % (4-13); Mean Corpuscular HGB 29.8 pg (26.0-34.0); Mean Corpuscular HGB Conc 32.9 g/dL (31.5-36.5); Mean Corpuscular Volume 90 fL (80-100); Mean Platelet Volume 9.8 fL (9.1-12.4); NEUTROPHILS ABSOLUTE AUTO 4.68 K/mm3 (1.96-9.15); NEUTROPHILS PERCENT AUTO 64 % (41-73); Platelet Count 218 K/mm3 (150-400); RDW Coefficient Variation 13.3 % (11.7-14.2); RDW Standard Deviation 44.1 fL (35.1-46.3); Red Blood Cell Count 3.76 M/mm3 (4.30-5.90); White Blood Cell Count 7.37 K/mm3 (4.00-11.30)
[2024-01-18 05:37] LABS: Albumin, Blood 2.8 g/dL (3.4-5.0); Albumin/Globulin Ratio 0.9 (0.8-1.8); Bilirubin, Total 0.3 mg/dL (0.1-1.0); Bun/Creatinine Ratio 20.4 (12.0-20.0); Calcium, Blood 8.4 mg/dL (8.5-10.1); Creatinine, Blood 0.98 mg/dL (0.60-1.20); Globulin, Blood 3.2 g/dL (2.2-4.0); Potassium, Blood 4.3 mmol/L (3.5-5.5)
[2024-01-18 07:29] VITALS: BP 146/59
--- NOTE | 2024-01-18 08:37 | NUR ---
SHIFT SUMMARY PT IS A&OX4, PLEASANT AND COOPERATIVE. PT IS RESTLESS, AND CAN'T GET COMFORTABLE. NO NEED TO ASSESS CIWA'S. PT STATES HE HAS 2 SHOTS OF BLACK VELVET NIGHTLY, LAST DRINK WAS LAST THURSDAY. VSS ON RA. C/O PAIN IN BLE AND LOW BACK, MEDICATED WITH PRN NORCO WITH LITTLE EFFECT. PLACED NICOTINE PATCH ON PT'S RIGHT SHOULDER BLADE. TOLERATING A REGULAR DIET, HAD SNACKS TONIGHT. X2 ASSIST TO BSC. VOIDING ADEQUATE AMOUNTS OF URINE, HAS SOME DRIBBLING, BRIEF IN PLACE AND CHANGED NEEDED. SMALL BM THIS SHIFT. FRIEND AND NEIGHBOR STEVE IN TO VISIT PT. BED IN LOWEST POSITION, CALL LIGHT WITHIN REACH. CALLS APPROPRIATELY.
[2024-01-18] MEDS ORDERED: Heparin Sodium,Porcine 5,000 UNIT/0.5 ML SDV SC SCH (09:00)
[2024-01-18 10:38] VITALS: BP 123/66
--- NOTE | 2024-01-18 16:22 | NUR ---
SHIFT SUMMARY- PT HAS HAD NO ACUTE CHANGE T/O THE DAY. IV SL NS DC'D. PLAN IS FOR PLACEMENT WHEN SNF BED COMES AVAILABLE. CARE MANAGEMENT IS INVOLVED. MD REQUESTED RECORDS FOR URINE CULTURE. CONTACTED MEDICAL RECORDS AT THE [place] AND RECIEVED THE RESULTS VIA FAX, DR JORDAN WAS ABLE TO VIEW THE RESULTS. PT STATES HIS PROCEDURE WITH [facility] IS SCHEDULED FOR 5-30. SPOKE TO , HE IS AWARE. SQ HEPARIN DC'D AND PO XERALTO RESUMED. PT HAD A LARGE BM TODAY IN THE BSC. PT WAS ABLE TO TRANSFER 2PA TO THE BSC MINIMAL TO MODERATE ASSIST. PT IN BED, CALL LIGHT IN REACH NO S&S OF DISTRESS NOTED.
[2024-01-18 16:50] VITALS: BP 121/51
[2024-01-18 19:23] VITALS: BP 115/53
[2024-01-18] MEDS ORDERED: Rivaroxaban 2.5 MG TABLET PO SCH (21:00)
[2024-01-19 02:52] VITALS: BP 115/48
[2024-01-19 05:35] LABS: BASOPHILS ABSOLUTE AUTO 0.03 K/mm3 (0.00-0.23); BASOPHILS PERCENT AUTO 1 % (0-2); EOSINOPHILS ABSOLUTE AUTO 0.41 K/mm3 (0.00-0.68); EOSINOPHILS PERCENT AUTO 6 % (0-6); Hemoglobin 11.2 g/dL (13.5-17.5); IMMATURE GRAN ABSOLUTE AUTO 0.03 K/mm3 (0.00-0.10); IMMATURE GRAN PERCENT AUTO 1 % (0-1); LYMPHOCYTES ABSOLUTE AUTO 1.52 K/mm3 (0.84-5.20); LYMPHOCYTES PERCENT AUTO 24 % (21-46); MONOCYTES PERCENT AUTO 8 % (4-13); Mean Corpuscular HGB 29.7 pg (26.0-34.0); Mean Corpuscular HGB Conc 32.9 g/dL (31.5-36.5); Mean Corpuscular Volume 90 fL (80-100); Mean Platelet Volume 9.7 fL (9.1-12.4); NEUTROPHILS ABSOLUTE AUTO 3.94 K/mm3 (1.96-9.15); NEUTROPHILS PERCENT AUTO 61 % (41-73); Platelet Count 234 K/mm3 (150-400); RDW Coefficient Variation 13.3 % (11.7-14.2); RDW Standard Deviation 43.9 fL (35.1-46.3); Red Blood Cell Count 3.77 M/mm3 (4.30-5.90); White Blood Cell Count 6.43 K/mm3 (4.00-11.30)
[2024-01-19 05:58] LABS: Bun/Creatinine Ratio 20.4 (12.0-20.0); Calcium, Blood 8.6 mg/dL (8.5-10.1); Creatinine, Blood 0.88 mg/dL (0.60-1.20); Potassium, Blood 4.2 mmol/L (3.5-5.5)
[2024-01-19 07:20] VITALS: BP 131/77
--- NOTE | 2024-01-19 08:17 | NUR ---
SHIFT SUMMARY PT IS A&OX4, PLEASANT AND COOPERATIVE. NO ACUTE CHANGES OR EVENTS THIS SHIFT. VSS ON RA. C/O PAIN 04/23 IN HIS BLE, MEDICATED PER EMAR. TOLERATING A REGULAR DIET, A LARGE BAG OF PEANUT BUTTER M&MS AT BEDSIDE. X2 ASSIST TO BSC, USES URINAL INDEPENDENTLY. BED IN LOWEST POSITION, CALL LIGHT WITHIN REACH.
--- NOTE | 2024-01-19 14:47 | NUR ---
SHIFT SUMMARY PT AWAKE DURING SHIFT REPORT. A&O, PLEASANT AND CO-OP. PT HOPING TO GO TO REHAB TODAY. PT UNABLE TO GO TO [facility] D/T CANCER MEDS; HX PROSTATE CA AND STILL ON CA MEDS PER DR CHAKRABORTY. [facility]. PT IS CONTINENT OF URINE, WITH AN OCCASSIONAL EPISODE OF INCONTINENCE D/T PROSTRATE CA. CURRENT SMOKER; 2 PKS/DAY. NICOTINE PATCH PLACED. 1P ASSIST TO BSC USING FWW/GB. BED BATH GIVEN PER PT REQUEST. MEDICATED PER EMAR FOR C/O LEG PAIN; ESPECIALLY R HIP/THIGH, AND KNEE. DENIES FURTHER NEEDS AT THIS TIME. CALL LT IN PLACE.
[2024-01-19 15:29] VITALS: BP 116/70
[2024-01-19 20:32] VITALS: BP 123/59
[2024-01-19] MEDS ORDERED: NS 250 ML IV PRN (21:30)
[2024-01-20 05:07] VITALS: BP 131/59
--- NOTE | 2024-01-20 06:07 | NUR ---
Shift Summary No acute changes this shift. Pt slept well t/o most of the night sleeping on his side and turning independently. He has a persistant wet cough which he attributes to his 2/pack a day smoking habit. I encouraged him to quit but he seems unwilling at this time. Nicotine patch in place. Pt using urinal at the bedside independently. Pedal pulses are weak but palpable. Plan for DC today [place] for [place]hab. Home cancer drugs are in pt's locked drawer outside the room, his home Toyah is held securely in [facility]. Medicated once for hip pain. AOx4.
[2024-01-20 07:41] VITALS: BP 139/70
[2024-01-20 15:10] VITALS: BP 110/59
--- NOTE | 2024-01-20 18:46 | NUR ---
SHIFT SUMMARY PT ATTEMPTING TO HAVE A BM TODAY. PLANS FOR [facility]. MEDICATED FOR R KNEE PAIN TODAY WITH MINIMAL AFFECT. 1 PERSON ASSIST WITH TRANSFER TO COMMODE USING FWW. AWAKE MOST OF THE DAY.
[2024-01-20 19:51] VITALS: BP 149/54
--- NOTE | 2024-01-21 03:52 | NUR ---
BOAT ENGINES INSTALLER SUMMARY VSS. ALERT AND ORIENTED X 4. CIWA SCORE "0". NO NOTED S/S WITHDRAWL. UP TO BEDSIDE COMMODE WITH ASSIST. HOB ELEVATED FOR BREATHING COMFORT. ANTIBIOTICS AND MEDS TOLERATED WELL. HAS BEEN RESTING QUIETLY WITH FEW INTERRUPTIONS. DENIED DISTRESS. NO NOTED S/S ACUTE DISTRESS. WILL DO COVID SWAB LATER TO RULE OUT COVID. CALL LIGHT IN REACH, RAILS UP X 2 AND BED IN LOW POSITION FOR SAFETY. WILL CONTINUE TO MONITOR
[2024-01-21 05:06] VITALS: BP 130/72
[2024-01-21 05:40] LABS: BASOPHILS ABSOLUTE AUTO 0.03 K/mm3 (0.00-0.23); BASOPHILS PERCENT AUTO 0 % (0-2); EOSINOPHILS ABSOLUTE AUTO 0.57 K/mm3 (0.00-0.68); EOSINOPHILS PERCENT AUTO 8 % (0-6); Hematocrit 35.8 % (37.0-53.0); IMMATURE GRAN ABSOLUTE AUTO 0.03 K/mm3 (0.00-0.10); IMMATURE GRAN PERCENT AUTO 0 % (0-1); LYMPHOCYTES ABSOLUTE AUTO 1.75 K/mm3 (0.84-5.20); LYMPHOCYTES PERCENT AUTO 25 % (21-46); MONOCYTES ABSOLUTE AUTO 0.45 K/mm3 (0.16-1.47); MONOCYTES PERCENT AUTO 6 % (4-13); Mean Corpuscular HGB 29.6 pg (26.0-34.0); Mean Corpuscular HGB Conc 33.5 g/dL (31.5-36.5); Mean Corpuscular Volume 88 fL (80-100); Mean Platelet Volume 9.4 fL (9.1-12.4); NEUTROPHILS ABSOLUTE AUTO 4.27 K/mm3 (1.96-9.15); NEUTROPHILS PERCENT AUTO 60 % (41-73); Platelet Count 258 K/mm3 (150-400); RDW Coefficient Variation 13.2 % (11.7-14.2); RDW Standard Deviation 43.2 fL (35.1-46.3); Red Blood Cell Count 4.05 M/mm3 (4.30-5.90)
[2024-01-21 06:20] LABS: SARS-Cov-2 (COVID-19) PCR, MMC NEGATIVE (NEGATIVE)
[2024-01-21 06:31] LABS: Albumin, Blood 3.1 g/dL (3.4-5.0); Bilirubin, Total 0.4 mg/dL (0.1-1.0); Bun/Creatinine Ratio 17.1 (12.0-20.0); Calcium, Blood 8.9 mg/dL (8.5-10.1); Globulin, Blood 3.1 g/dL (2.2-4.0); Total Protein, Blood 6.2 g/dL (6.4-8.2)
[2024-01-21 07:21] VITALS: BP 152/65
--- NOTE | 2024-01-21 15:07 | NUR ---
REPORT CALLED TO TACOS AT [facility] [place]. W/C TRANSPORTATION HERE TO PICK PT UP AT 1430. CHEMO MEDS, AND NORCO FROM PHARMACY RETURNED TO PT ON DISCHARGE. DRESSING TO COCCYX AND PIC TAKEN PRIOR TO DISCHARGE. TO [facility] VIA W/C.
== END 2024-01-21 14:37 | DRG 300 ==
LOC: ER 15:57 → MEDS 15:58 → ENPENDDIS 01-21 10:00 → MEDS 01-21 14:37
PROVIDERS: Emergency Medicine; Family Medicine; Hospitalist; Student in an Organized Health Care Education/Training Program; ADMIT Internal Medicine
DX: E11.51 Type 2 diabetes mellitus with diabetic peripheral angiopathy without gangrene (principal); N39.0 Urinary tract infection, site not specified; G89.29 Other chronic pain; J44.9 Chronic obstructive pulmonary disease, unspecified; I10 Essential (primary) hypertension; K21.9 Gastro-esophageal reflux disease without esophagitis; F17.210 Nicotine dependence, cigarettes, uncomplicated; I70.223 Atherosclerosis of native arteries of extremities with rest pain, bilateral legs; M25.561 Pain in right knee; M25.551 Pain in right hip; E78.5 Hyperlipidemia, unspecified; Z96.651 Presence of right artificial knee joint; Z98.890 Other specified postprocedural states; I25.2 Old myocardial infarction; Z85.46 Personal history of malignant neoplasm of prostate; Z90.79 Acquired absence of other genital organ(s); Z79.01 Long term (current) use of anticoagulants; Z79.02 Long term (current) use of antithrombotics/antiplatelets; Z79.899 Other long term (current) drug therapy
CPT/HCPCS: 36415; 73502; 80048; 80053; 81001; 85025; 93005; 93010; 93925; 97110; 97162; 97530; 99285-25; A9270; G0378; J0696; J7030; U0002